=== PATIENT | male | born 1960 | race Caucasian/White ===

== ENCOUNTER → 2024-08-15 | Outpatient (CLI) | payer OTHER, SELFPAY ==
--- NOTE | 2024-08-15 07:48 | US_ITS ---
HISTORY: thrombocytopenia, leukopenia. TECHNIQUE: Clemens-scale and color Doppler imaging was performed of the abdomen. 160 images. COMPARISON: None. FINDINGS: LIVER: 13.4 cm in length. Cysts measuring up to 1 cm in the left lobe, 3.5 cm in the right lobe, and 3 cm in the right lobe. No intrahepatic biliary ductal dilatation. COMMON BILE DUCT: 7 mm in diameter. GALLBLADDER: Surgically absent. PANCREAS: Visualized proximal portion unremarkable. SPLEEN: 11.9 cm in length with an lobulated. RIGHT KIDNEY: 10.4 cm in length with cortical thickness of 1.5 cm. No hydronephrosis. Multiple shadowing echogenic foci measuring 7 mm, 9 mm, and 15 mm in the lower pole LEFT KIDNEY: 11.4 cm in length with a cortical thickness of 1.5 cm. No hydronephrosis. Multiple echogenic foci measuring 4 to 6 mm VESSELS: Abdominal aorta and iliac arteries nondilated. Patent inferior vena cava. Patent main portal vein with flow in the appropriate direction. ASCITES: None. US/Abdomen Complete IMPRESSION: Lobulated spleen. Small hepatic cysts. Cholecystectomy with a mildly dilated common bile duct. Nonobstructing bilateral renal calculi. Electronically Signed: Andreia Tran MD at 15:10 EDT ,
== END | disposition home or self-care (01) ==
LOC: US 07:44
PROVIDERS: Referring Provider Nurse Practitioner Family; Visit Provider Nurse Practitioner Family
DX: D70.9 Neutropenia, unspecified (principal); D69.6 Thrombocytopenia, unspecified
CPT/HCPCS: 76700